=== PATIENT | female | born 1985 | race Asian ===

== ENCOUNTER 2020-11-03 15:11 | Outpatient (CLI) | payer OTHER | END 2020-11-03 15:12 | disposition home or self-care (01) | LOC: COV 15:11 | PROVIDERS: ATTEND Family Medicine | DX: Z20.828 Contact with and (suspected) exposure to other viral communicable diseases (principal) ==

== ENCOUNTER 2021-02-15 11:56 | Emergency (ER) | payer OTHER ==
[2021-02-15 12:42] LABS: BASOPHILS # (AUTO) 0.1 10^3/uL (0.0-0.1); BASOPHILS % (AUTO) 0.7 %; EOSINOPHILS # (AUTO) 0.1 10^3/uL (0.0-0.7); EOSINOPHILS % (AUTO) 1.1 %; HCT - HEMATOCRIT 40.2 % (37.0-47.0); HGB - HEMOGLOBIN 13.1 g/dL (12.0-16.0); LYMPHOCYTES # (AUTO) 2.5 10^3/uL (1.5-3.5); LYMPHOCYTES % (AUTO) 35.3 %; MEAN CORPUSCULAR HEMOGLOBIN 28.7 pg (27.0-31.0); MEAN CORPUSCULAR HGB CONC 32.6 g/dL (32.0-36.0); MEAN CORPUSCULAR VOLUME 88.2 fL (81.0-99.0); MEAN PLATELET VOLUME 10.4 fL (7.9-10.8); MONOCYTES # (AUTO) 0.3 10^3/uL (0.0-1.0); MONOCYTES % (AUTO) 4.8 %; NEUTROPHILS # (AUTO) 4.1 10^3/uL (1.5-6.6); PLT - PLATELET COUNT 322 10^3/uL (130-450); RED BLOOD COUNT 4.56 10^6/uL (4.20-5.40); RED CELL DISTRIBUTION WIDTH 12.5 % (12.0-15.0); WHITE BLOOD COUNT 7.1 x10^3/uL (4.8-10.8)
--- NOTE | 2021-02-15 12:42 | XRAY Report ---
PROCEDURE: Chest 1 View X-Ray INDICATIONS: Chest pain TECHNIQUE: One view of the chest was acquired. COMPARISON: FINDINGS: Surgical changes and devices: None. Lungs and pleura: No pleural effusions or pneumothorax. Lungs are clear. Mediastinum: Mediastinal contours appear normal. Heart size is normal. Bones and chest wall: No suspicious bony lesions. Overlying soft tissues appear unremarkable. IMPRESSION: Source of chest pain is not found. Depending on the clinical status follow-up by chest CT for pulmona ry embolus workup may be warranted. Reviewed by: Lincoln Cbeallos MD on 02/15/2021 12:40 PM PDT Approved by: Lincoln Ceballos MD on 02/15/2021 12:40 PM PDT Station ID: [id number]
[2021-02-15 13:10] LABS: ALBUMIN 4.8 g/dL (3.2-5.5); ALBUMIN/GLOBULIN RATIO 1.3 (1.0-2.2); BILIRUBIN,TOTAL 0.7 mg/dL (0.2-1.0); CALCIUM 9.7 mg/dL (8.5-10.3); CREATININE 0.7 mg/dL (0.4-1.0); POTASSIUM 3.6 mmol/L (3.5-5.0); TOTAL PROTEIN 8.5 g/dL (6.7-8.2)
[2021-02-15 13:11] LABS: HCG,QUALITATIVE BLOOD NEGATIVE
--- NOTE | 2021-02-15 14:12 | ED Physician Documentation ---
History of Present Illness - Stated complaint Stated Complaint: CHEST PX/SOA - Chief complaint Chief Complaint: Cardiac - History obtained from History obtained from: Patient - Additonal information Additional information: 35-year-old non-smoker, previously healthy presents with chest pain and shortness of breath intermittent over the past 3 weeks. Patient states that it is gradual in onset, worse with talking, not exertional, described as a tightness in the mid sternum that is nonradiating associated with disability to catch her breath. Denies fever, cough, rash, abdominal pain, nausea, sick contacts. PERC negative. Review of Systems Ten Systems: 10 systems reviewed and negative Constitutional: denies: Fever Cardiac: reports: Chest pain / pressure Respiratory: reports: Dyspnea. denies: Cough, Wheezing GI: denies: Nausea PD PAST MEDICAL HISTORY - Past Medical History Past Medical History: No - Past Surgical History Past Surgical History: No - Allergies Allergies/Adverse Reactions: Allergies Allergy/AdvReac Type Severity Reaction Status Date / Time No Known Drug Allergies Allergy Verified 02/15/21 12:09 - Social History Does the pt smoke?: No Smoking Status: Never smoker Does the pt drink ETOH?: No Does the pt have substance abuse?: No - Immunizations Immunizations are current?: Yes - POLST Patient has POLST: No PD ED PE NORMAL - Vitals Vital signs reviewed: Yes - General General: Alert and oriented X 3, No acute distress, Well developed/nourished - HEENT HEENT: Atraumatic, PERRL, EOMI - Neck Neck: Supple, no meningeal sign - Cardiac Cardiac: RRR, No murmur - Respiratory Respiratory: No respiratory distress, Clear bilaterally - Abdomen Abdomen: Non tender, Non distended - Female Female : Deferred - Rectal Rectal: Deferred - Derm Derm: Normal color - Extremities Extremities: No deformity, No edema - Neuro Neuro: Alert and oriented X 3 - Psych Psych: Normal mood, Normal affect Results - Vitals Vitals: Vital Signs - 24 hr 02/15/21 02/15/21 12:09 12:12 Temperature 36.5 C 36.5 C Heart Rate 76 76 Respiratory 18 18 Rate Blood Pressure 129/66 129/66 O2 Saturation 98 98 Oxygen O2 Source Room air - Labs Labs: Laboratory Tests 02/15/21 02/15/21 02/15/21 12:36 12:36 12:36 WBC 7.1 RBC 4.56 Hgb 13.1 Hct 40.2 MCV 88.2 MCH 28.7 MCHC 32.6 RDW 12.5 Plt Count 322 MPV 10.4 Neut # (Auto) 4.1 Lymph # (Auto) 2.5 Coffey # (Auto) 0.3 Eos # (Auto) 0.1 Baso # (Auto) 0.1 Absolute Nucleated RBC 0.00 Nucleated RBC % 0.0 Sodium 138 Potassium 3.6 Chloride 103 Carbon Dioxide 26 Anion Gap 9.0 BUN 11 Creatinine 0.7 Estimated GFR (MDRD) 96 Glucose 89 Calcium 9.7 Total Bilirubin 0.7 AST 14 ALT 13 Alkaline Phosphatase 75 Troponin I High Sens < 2.3 L Total Protein 8.5 H Albumin 4.8 Globulin 3.7 Albumin/Globulin Ratio 1.3 Lipase 36 Serum HCG, Qual 02/15/21 12:36 WBC RBC Hgb Hct MCV MCH MCHC RDW Plt Count MPV Neut # (Auto) Lymph # (Auto) Coffey # (Auto) Eos # (Auto) Baso # (Auto) Absolute Nucleated RBC Nucleated RBC % Sodium Potassium Chloride Carbon Dioxide Anion Gap BUN Creatinine Estimated GFR (MDRD) Glucose Calcium Total Bilirubin AST ALT Alkaline Phosphatase Troponin I High Sens Total Protein Albumin Globulin Albumin/Globulin Ratio Lipase Serum HCG, Qual NEGATIVE PD MEDICAL DECISION MAKING - ED course ED course: 35-year-old woman presented with chest pain and shortness of breath, with unremarkable work-up in the emergency department. [id number] ultrasound of the heart was unremarkable with no pericardial effusion and normal cardiac squeeze. Strict return precautions given. Patient will follow up with [facility]. Departure - Departure Disposition: 01 Home, Self Care Clinical Impression: Chest pain, Dyspnea Condition: Good Instructions: ED Chest Pain NonCardiac Comments: You are seen in the emergency department for chest pain and shortness of breath. Everything on your work-up was normal. Your EKG, chest x-ray, lab work were unremarkable. Please return to the emergency department if you develop any new or worsening symptoms or have other concerns. Follow-up with your primary doctor on the [employer] [facility]. Checkout "headspace", a Netflix series about meditation.
[2021-02-15 14:23] VITALS: BP 113/56
--- OUTSIDE RECORDS SUMMARY | 2021-02-17 03:15 | EXTERNAL MEDICAL SUMMARY RPT | Continuity of Care Document ---
:1985 Demographics Phone Unavailable Preferred Language Unknown Marital Status Unknown Episcopalian Affiliation Unknown Race Unknown Ethnic Group Unknown Author Organization [facility] Address [address] [place] [address] Phone Social History date description facility [phone]
--- OUTSIDE RECORDS SUMMARY | 2021-02-17 03:15 | EXTERNAL MEDICAL SUMMARY RPT | Continuity of Care Document ---
:1985 Demographics Phone Unavailable Preferred Language Unknown Marital Status Unknown Caodaism Affiliation Unknown Race Unknown Ethnic Group Unknown Author Organization [facility] Address [address] [place] [address] Phone Social History date description facility [phone]
== END 2021-02-15 14:23 | disposition home or self-care (01) ==
LOC: ED 11:56
DX: R07.9 Chest pain, unspecified (principal); R06.00 Dyspnea, unspecified
CPT/HCPCS: 36415; 80053; 83690; 84484; 84703; 85025; 93005; 99284